=== PATIENT | female | born 2000 | race Caucasian/White ===

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

== ENCOUNTER → 2019-05-02 | Outpatient (CLI) | payer OTHER ==
--- NOTE | 2019-05-03 03:58 | MR ---
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 Diffusion weighted imaging was performe d. FINDINGS: Ventricles have normal size. There is no mass effect nor midline shift. There is no sign of intracranial hemorrhage. There is no evidence of cerebral edema. There is no sign of a cortical infa rct. Corpus callosum appears normal. Sella turcica is fairly normal. Optic chiasm appears normal. The re is a single 3 mm focus of increased signal in the white matter right frontal lobe of doubtful sign ificance. Brainstem is intact. IMPRESSION: Negative MR scan of the brain. No change compared to old exam.
== END | disposition home or self-care (01) ==
LOC: RADMRIMAIN 19:24
PROVIDERS: ATTEND Psychiatry & Neurology Neurology
DX: D33.2 Benign neoplasm of brain, unspecified (principal)
CPT/HCPCS: 70551

== ENCOUNTER → 2020-08-30 | Outpatient (CLI) | payer OTHER ==
--- NOTE | 2020-08-31 02:17 | MR ---
EXAMINATION TYPE: MR brain wo/w con DATE OF EXAM: 08/30/2020 COMPARISON: 05/02/2019 HISTORY: New onset memory issues, dizziness, trouble forming words and sentences. CONTRAST: Standard multiplanar, multisequence MRI departmental protocol utilizing 5.5 mL intravenous Gadavist g adolinium contrast. Multiplanar multiecho imaging of the brain was performed without and with IV contrast gadolinium 5.5 mL. FINDINGS: Ventricles and sulci appear normal. There is no mass effect nor midline shift. There is no sign of in tracranial hemorrhage. Diffusion images show no evidence of an infarct. Meadows-white matter structures have normal signal pattern. There is no evidence of cerebral edema. Corpus callosum appears normal. Sella turcica is normal. Brainstem is intact. There is no evidence of posterior fossa mass. Orbits appear normal. Contrast images show no pathologic enhancement. There is normal enhancement of the venous sinuses. IMPRESSION: Normal MR scan of the brain. No adverse change.
== END | disposition home or self-care (01) ==
LOC: RADMRIMAIN 18:15
PROVIDERS: ATTEND Physician Assistant
DX: R42 Dizziness and giddiness (principal); R47.01 Aphasia
CPT/HCPCS: 70553; A9585

== ENCOUNTER 2024-11-16 17:36 | Emergency (ER) | payer OTHER ==
[2024-11-16 17:42] VITALS: TEMP 98
--- NOTE | 2024-11-16 17:58 | ED ---
General Adult HPI - General Chief complaint: Nausea/Vomiting/Diarrhea Stated complaint: 13 weeks /NVD/Upper Abd pain Time Seen by Provider: 11/16/24 17:42 Source: patient, RN notes reviewed Mode of arrival: ambulatory Limitations: no limitations - History of Present Illness Initial comments: This is a 24-year-old female, [id number], presenting to the emergency department with complaints of nausea, vomiting, epigastric abdominal pain. Patient states that last menstrual cycle was the beginning of August and has taken multiple positive at home test and believes that she is between 5 to 13 weeks . She states that she has been experiencing epigastric abdominal pain over the past few days however this is worsened today not being able to keep down foods or liquids. Patient denies vaginal bleeding, dysuria, hematuria, creased urinary frequency or urgency, fevers, cough, rhinorrhea or congestion. Endorses diarrhea that is nonbloody. Denies previous surgical abdominal history. - Related Data Previous Rx's Medication Instructions Recorded Ondansetron Odt [Zofran Odt] 4 mg PO Q8HR PRN #10 tab 11/16/24 Allergies Allergy/AdvReac Type Severity Reaction Status Date / Time No Known Allergies Allergy Verified 11/16/24 17:42 Review of Systems ROS Statement: Those systems with pertinent positive or pertinent negative responses have been documented in the HPI. ROS Other: All systems not noted in ROS Statement are negative. Past Medical History Additional Past Medical History / Comment(s): brain tumor History of Any Multi-Drug Resistant Organisms: None Reported Past Surgical History: No Surgical Hx Reported Past Psychological History: No Psychological Hx Reported General Exam Limitations: no limitations General appearance: alert, in no apparent distress ENT exam: Present: normal exam, mucous membranes moist Neck exam: Present: normal inspection. Absent: tenderness, meningismus, lymphadenopathy Respiratory exam: Present: normal lung sounds bilaterally. Absent: respiratory distress, wheezes, rales, rhonchi, stridor Cardiovascular Exam: Present: regular rate, normal rhythm, normal heart sounds. Absent: systolic murmur, diastolic murmur, rubs, gallop, clicks GI/Abdominal exam: Present: soft, tenderness (epigastric, lower abdomen), normal bowel sounds. Absent: distended, guarding, rebound, rigid Extremities exam: Present: normal inspection, full ROM, normal capillary refill. Absent: tenderness, pedal edema, joint swelling, calf tenderness Back exam: Present: normal inspection. Absent: CVA tenderness (R), CVA tenderness (L) Skin exam: Present: warm, dry, intact, normal color. Absent: rash Course Vital Signs 11/16/24 11/16/24 17:39 20:00 Temperature 98 F Pulse Rate 76 80 Respiratory 20 18 Rate Blood Pressure 135/82 112/69 O2 Sat by Pulse 98 100 Oximetry Medical Decision Making - Medical Decision Making Was pt. sent in by a medical professional or institution (, PA, INFLATABLE BUILDINGS LAMINATOR, urgent care, hospital, or penitentiary...) When possible be specific @ -No Did you speak to anyone other than the patient for history (EMS, parent, family, police, friend...)? What history was obtained from this source @ -No Did you review nursing and triage notes (agree or disagree)? Why? @ -I reviewed and agree with nursing and triage notes Were old charts reviewed (outside hosp., previous admission, EMS record, old EKG, old radiological studies, urgent care reports/EKG's, penitentiary records)? Report findings @ -No old charts were reviewed Differential Diagnosis (chest pain, altered mental status, abdominal pain women, abdominal pain men, vaginal bleeding, weakness, fever, dyspnea, syncope, headache, dizziness, GI bleed, back pain, seizure, CVA, palpatations, mental health, musculoskeletal)? @ -Differential Abdominal Pain Women: Appendicitis, Cholecystitis, diverticulosis, ischemic bowel, pancreatitis, hepatitis, UTI, gastroenteritis, AAA, incarcerated hernia, bowel obstruction, constipation, inflammatory bowel, hepatitis, peptic ulcer disease, splenic infarction, perforated viscus, vulvitis, ovarian torsion, PID, kidney stone, placenta abruption, this is not meant to be an all-inclusive list EKG interpreted by me (3pts min.). @ -None X-rays interpreted by me (1pt min.). @ -None done CT interpreted by me (1pt min.). @ -None done U/S interpreted by me (1pt. min.). @ - ultrasound completed reveals a single live intrauterine gestation with estimated gestational age of 6 weeks 1 day with a heart rate of 115, no evidence of subchorionic bleeding. What testing was considered but not performed or refused? (CT, X-rays, U/S, labs)? Why? @ -None What meds were considered but not given or refused? Why? @ -None Did you discuss the management of the patient with other professionals (professionals i.e. , PA, INFLATABLE BUILDINGS LAMINATOR, lab, RT, psych nurse, psychologist social, store management trainee, teacher, enforcement officer, case making machine operator)? Give summary @ -No Was smoking cessation discussed for >3mins.? @ -No Was critical care preformed (if so, how long)? @ -No Were there social determinants of health that impacted care today? How? (Homeles sness, low income, unemployed, alcoholism, drug addiction, transportation, low edu. Level, literacy, decrease access to med. care, skilled nursing, rehab)? @ -No Was there de-escalation of care discussed even if they declined (Discuss DNR or withdrawal of care, Hospice)? DNR status @ -No What co-morbidities impacted this encounter? (DM, HTN, Smoking, COPD, CAD, Cancer, CVA, ARF, Chemo, Hep., AIDS, mental health diagnosis, sleep apnea, morbid obesity)? @ -None Was patient admitted / discharged? Hospital course, mention meds given and route, prescriptions, significant lab abnormalities, going to OR and other pertinent info. @ -Discharge. 24-year-old sent emergency room with nausea, vomiting, abdominal pain during . Patient's pain is reproducible on examination of epigastric region. Patient is provided with IV fluids and Reglan for nausea. Patient has an elevated white cell count of 12.9, shift neutrophils of 10 likely secondary to emesis. CMP [place] [address] Patient's urine is 2+ ketones likely secondary to dehydration. No signs of infection. Ultrasound reveals a intrauterine gestation with an age of 6 weeks 1 days and heart rate of 115. Patient is feeling well after fluids and antiemetics and is stable for discharge. Return parameters discussed. Case discussed with Dr. Herrmann Undiagnosed new problem with uncertain prognosis? @ -No Drug Therapy requiring intensive monitoring for toxicity (Heparin, Nitro, Insulin, Cardizem)? @ -No Were any procedures done? @ -No Diagnosis/symptom? @ -nausea and vomiting during , hyperemesis gravadarum Acute, or Chronic, or Acute on Chronic? @ -acute Uncomplicated (without systemic symptoms) or Complicated (systemic symptoms)? @ -uncomplicated Side effects of treatment? @ -No Exacerbation, Progression, or Severe Exacerbation? @ -No Poses a threat to life or bodily function? How? (Chest pain, USA, SC, pneumonia, PE, COPD, DKA, ARF, appy, cholecystitis, CVA, Diverticulitis, Homicidal, Suicidal, threat to staff... and all critical care pts) @ -No - Lab Data Result diagrams: 11/16/24 18:27 11/16/24 18:27 Lab Results 11/16/24 11/16/24 11/16/24 Range/Units 18:27 18:27 18:27 WBC 12.95 H (4.50-10.00) 10*3/uL RBC 4.22 (4.10-5.20) 10*6/uL Hgb 12.3 (12.0-15.0) g/dL Hct 34.7 L (37.2-46.3) % MCV 82.2 (80.0-97.0) fL MCH 29.1 (27.0-32.0) pg MCHC 35.4 (32.0-37.0) g/dL Plt Count 332 (140-440) 10*3/uL MPV 10.5 (9.5-12.2) fL Immature Gran % (Auto) 0.5 % Neutrophils % 77.8 % Lymphocytes % 14.1 % Monocytes % 6.8 % Eosinophils % 0.3 % Basophils % 0.5 % Immature Gran # 0.06 H (0.00-0.04) 10*3/uL Neutrophils # 10.08 H (1.80-7.70) 10*3/uL Lymphocytes # 1.83 (0.90-5.00) 10*3/uL Monocytes # 0.88 (0.20-1.00) 10*3/uL Eosinophils # 0.04 (0.04-0.35) 10*3/uL Basophils # 0.06 (0.00-0.10) 10*3/uL Sodium 135 L (137-145) mmol/L Potassium 3.6 (3.5-5.1) mmol/L Chloride 101 (98-107) mmol/L Carbon Dioxide 21 L (22-30) mmol/L Anion Gap 13 mmol/L BUN 6 L (7-17) mg/dL Creatinine 0.58 (0.52-1.04) mg/dL Est GFR (CKD-EPI)AfAm >90 (>60 ml/min/1.73 sqM) Est GFR (CKD-EPI)NonAf >90 (>60 ml/min/1.73 sqM) Glucose 99 (74-99) mg/dL Calcium 9.9 (8.4-10.2) mg/dL Total Bilirubin 1.0 (0.2-1.3) mg/dL AST 27 (14-36) U/L ALT 20 (4-34) U/L Alkaline Phosphatase 27 L (38-126) U/L Total Protein 7.7 (6.3-8.2) g/dL Albumin 4.8 (3.5-5.0) g/dL Lipase 64 (23-300) U/L HCG, Quant 86840.8 mIU/mL Urine Color Yellow Urine Appearance Clear (Clear) Urine pH 5.5 (5.0-8.0) Ur Specific [place] 1.021 (1.001-1.035) Urine Protein Negative (Negative) Urine Glucose (UA) Negative (Negative) Urine Ketones 2+ H (Negative) Urine Blood Negative (Negative) Urine Nitrite Negative (Negative) Urine Bilirubin Negative (Negative) Urine Urobilinogen <2.0 (<2.0) mg/dL Ur Leukocyte Esterase Negative (Negative) Disposition Clinical Impression: Nausea and vomiting during Disposition: HOME SELF-CARE Condition: Stable Instructions (If sedation given, give patient instructions): Nausea and Vomiting in (ED) Additional Instructions: Please return to the Emergency Department if symptoms worsen or any other concerns. Prescriptions: Ondansetron Odt [Zofran Odt] 4 mg PO Q8HR PRN #10 tab PRN Reason: Nausea Is patient prescribed a controlled substance at d/c from ED?: No Referrals: Janel Angeles DO [Primary Care Provider] - 1-2 days Time of Disposition: 20:15
[2024-11-16] MEDS: METOCLOPRAMIDE 5 MG/ML 2 ML VIAL IVP STA (18:29)
[2024-11-16] MEDS: SODIUM CHLORIDE 0.9% 2,000 ML IV STA (18:31)
[2024-11-16 18:42] LABS: Basophils # (A) 0.06 10*3/uL (0.00-0.10); Basophils % (A) 0.5 %; Eosinophils # (A) 0.04 10*3/uL (0.04-0.35); Eosinophils % (A) 0.3 %; HCT 34.7 % (37.2-46.3); HGB 12.3 g/dL (12.0-15.0); Lymphocytes # (A) 1.83 10*3/uL (0.90-5.00); Lymphocytes % (A) 14.1 %; MCH 29.1 pg (27.0-32.0); MCHC 35.4 g/dL (32.0-37.0); MCV 82.2 fL (80.0-97.0); Mean Platelet Volume 10.5 fL (9.5-12.2); Monocytes # (A) 0.88 10*3/uL (0.20-1.00); Monocytes % (A) 6.8 %; Neutrophils # (A) 10.08 10*3/uL (1.80-7.70); Neutrophils % (A) 77.8 %; Platelet Count 332 10*3/uL (140-440); RBC 4.22 10*6/uL (4.10-5.20); WBC 12.95 10*3/uL (4.50-10.00)
[2024-11-16 18:46] LABS: Appearance,Urine Clear (Clear); Bilirubin,Urine Negative (Negative); Blood,Urine Negative (Negative); Color,Urine Yellow; Glucose,Urine (UA) Negative (Negative); Ketones,Urine 2+ (Negative); Leukocyte Esterase,Urine Negative (Negative); Nitrite,Urine Negative (Negative); PH, Urine 5.5 (5.0-8.0); Protein,Urine Negative (Negative); Specific Gravity,Urine 1.021 (1.001-1.035); Urobilinogen,Urine <2.0 mg/dL (<2.0)
[2024-11-16 18:54] LABS: ALT 20 U/L (4-34); AST 27 U/L (14-36); African American GFR (CKD) >90 (>60 ml/min/1.73 sqM); Albumin 4.8 g/dL (3.5-5.0); Alkaline Phosphatase 27 U/L (38-126); Anion Gap 13 mmol/L; Blood Urea Nitrogen 6 mg/dL (7-17); Calcium 9.9 mg/dL (8.4-10.2); Carbon Dioxide 21 mmol/L (22-30); Chloride 101 mmol/L (98-107); Glucose 99 mg/dL (74-99); Lipase 64 U/L (23-300); Non-African American GFR(CKD) >90 (>60 ml/min/1.73 sqM); Potassium 3.6 mmol/L (3.5-5.1); Sodium 135 mmol/L (137-145); Total Protein 7.7 g/dL (6.3-8.2)
[2024-11-16 19:46] LABS: HCG,Quantitative Serum 31874.8 mIU/mL
--- NOTE | 2024-11-16 19:53 | US ---
EXAMINATION TYPE: Transabdominal DATE OF EXAM: 11/16/2024 7:09 PM COMPARISON: NONE CLINICAL INDICATION: Female, 24 years old with history of ab pain, cramping, + test, LMP 08/09/24; TECHNIQUE: Transabdominal (TA) with grayscale and color Doppler imaging including first trimester pre gnancy. FINDINGS: EXAM MEASUREMENTS: GESTATIONAL AGE / DATING Physician Established: Dates by LMP: (14 weeks/1 days) EDC: 05/16/2025 Dates by First Scan: No previous this is first scan Dates by Current Scan for: (6 weeks/1 days) EDC: 07/11/2025 MATERNAL ANATOMY Uterus: 8.9 x 6.3 x 4.5 cm Right Ovary: 2.5 x 1.6 x 1.6 cm Left Ovary: 2.5 x 1.2 x 1.2 cm Post CDS / Adnexa: no free fluid Presence of free fluid: no Presence of corpus luteal cyst: no Presence of subchorionic bleed: no GESTATION / SURVEY CRL: 0.4 cm (6 weeks/1 days) Gestational Sac morphology: unremarkable Gestational Sac MSD: seen, not measured Yolk Sac (normal less than 6mm): 2.4 mm Cardiac Activity/Heart Rate: 115 bpm Rhythm: Normal IUP: Viable IUP Date of LMP: 08/09/24, Beta HcG (if available): Not available at this time IMPRESSION: 1. Single intrauterine gestation estimated at 6 weeks 1 day gestation based on crown-rump length. Car diac activity measures 115 bpm. [facility], , 11/16/2024 7:51 PM
[2024-11-16 20:06] VITALS: BP 112/69; PULSE 80; RESP 18
[2024-11-16] MEDS: ONDANSETRON 4 MG ODT STARTER PACK 2 TAB BTL PO STA (20:27)
[2024-11-16] MEDS: ONDANSETRON 4 MG/2 ML VIAL IVP STA (20:48)
== END 2024-11-16 20:41 | disposition home or self-care (01) ==
LOC: EC 17:36
DX: O21.9 Vomiting of pregnancy, unspecified (principal); Z3A.13 13 weeks gestation of pregnancy
CPT/HCPCS: 36415; 80053; 83690; 85025; 81003; 84702; 76801; 99284; 96374; 96361 ×2; J2765; S0119

== ENCOUNTER 2024-11-30 13:28 | Observation (INO) | payer BC, OTHER ==
--- NOTE | 2024-11-30 13:59 | ED ---
General Adult HPI - General Chief complaint: Nausea/Vomiting/Diarrhea Stated complaint: Nausea Time Seen by Provider: 11/30/24 13:42 Source: patient Mode of arrival: wheelchair - History of Present Illness Initial comments: Has a previous healthy 24-year-old female presenting today for nausea and vomiting in . States she is 9 weeks . Was here 2 weeks ago for similar and was discharged home with Zofran. She is has been taking Zofran regularly and ran out 3 days ago and started having symptoms again yesterday evening. She endorses persistent nausea and vomiting this morning up to 30 episodes. Emesis is nonbloody nonbilious. She has no abdominal pain shortness of breath or chest pain. She has not had any fevers or chills, dysuria, urinary frequency or hematuria, no vaginal bleeding or discharge, no abdominal pain. She is requesting "just her nausea medications and I can go". She went to local urgent care but they were unsure if she could have Zofran in so sent her here. She denies lightheadedness or dizziness, she has her first priscila ointment with an OB in [place] in a couple of weeks. - Related Data Previous Rx's Medication Instructions Recorded Famotidine [Pepcid] 20 mg PO BID tab 12/01/24 Ondansetron Odt [Zofran ODT] 4 mg PO Q8HR PRN #30 tab 12/01/24 Pyridoxine HCl (Vitamin B6) 25 mg PO Q8H PRN #30 tablet 12/01/24 [Pyridoxine HCl] Allergies Allergy/AdvReac Type Severity Reaction Status Date / Time No Known Allergies Allergy Verified 11/30/24 16:44 Review of Systems ROS Statement: Those systems with pertinent positive or pertinent negative responses have been documented in the HPI. ROS Other: All systems not noted in ROS Statement are negative. Past Medical History Additional Past Medical History / Comment(s): brain tumor History of Any Multi-Drug Resistant Organisms: None Reported Past Surgical History: No Surgical Hx Reported Past Psychological History: No Psychological Hx Reported Smoking Status: Former smoker Past Alcohol Use History: None Reported Past Drug Use History: Marijuana - Past Family History Sister(s) Family Medical History: Diabetes Mellitus General Exam - General Exam Comments Initial Comments: PE: CONSTITUTIONAL: No apparent distress, somewhat ill-appearing, nontoxic, SKIN: Warm, dry, no jaundice, hives or petechiae, generalized pallor EYES: Pupils are equally round, extraocular movements intact without nystagmus, clear conjunctiva, non-icteric sclera HENT: Normocephalic, atraumatic, moist mucus membranes, oropharynx clear without exudates NECK: , Full range of motion, normal appearance PULMONARY: Clear to auscultation without wheezes, rhonchi, or rales, normal excursion, no accessory muscle use and no stridor CARDIOVASCULAR: Regular rate, rhythm, normal S1 and S2. No appreciated murmurs, rubs or gallops. Strong radial pulses with intact distal perfusion. No lower extremity edema GASTROINTESTINAL: Soft, active bowel sounds throughout, non-tender, non- distended, no palpable masses, no rebound or guarding. No hepatosplenomegaly, no CVA tenderness GENITOURINARY: MUSCULOSKELETAL: Extremities have no gross deformity, no edema, redness, or swelling. NEUROLOGIC:_a/o x 3, GCS 15, normal mentation and speech. Moves all extremities x 4 without motor or sensory deficit PSYCHIATRIC:_normal mood and affect, thought process is clear and linear Course Vital Signs 11/30/24 11/30/24 11/30/24 13:45 15:27 18:36 Temperature 97.5 F L 98.1 F 98.9 F Pulse Rate 86 81 76 Respiratory 18 17 19 Rate Blood Pressure 104/53 97/54 99/62 O2 Sat by Pulse 100 99 100 Oximetry Medical Decision Making - Medical Decision Making Was pt. sent in by a medical professional or institution (, PA, MANAGER BILINGUAL, urgent care, hospital, or penitentiary...) When possible be specific @ -No Did you speak to anyone other than the patient for history (EMS, parent, family, police, friend...)? What history was obtained from this source @ -No Did you review nursing and triage notes (agree or disagree)? Why? @ -I reviewed and agree with nursing and triage notes Were old charts reviewed (outside hosp., previous admission, EMS record, old EKG, old radiological studies, urgent care reports/EKG's, penitentiary records)? Report findings @ -Medical records reviewed patient was here on 11/16/2024, reviewed notes and la bs from that date, patient had been seen for nausea, vomiting and epigastric abdominal pain last menstrual cycle beginning of August, patient was provided IV fluids and Reglan, labs are significant for white blood cell count of 12.9, hCG quant was 31,874, urine had 2+ ketones, ultrasound showed intrauterine gestation with age of 6 weeks 1 day and heart rate of 115 patient felt well after fluids antiemetics with stable for discharge Differential Diagnosis (chest pain, altered mental status, abdominal pain women, abdominal pain men, vaginal bleeding, weakness, fever, dyspnea, syncope, headache, dizziness, GI bleed, back pain, seizure, CVA, palpatations, mental health, musculoskeletal)? @ -[Differential diagnosis remains broad over top considerations include hyperemesis gravidarum, nausea vomiting in , gastroenteritis, cholecystitis, pancreatitis this is not an all inclusive ist EKG interpreted by me (3pts min.). @ -As above X-rays interpreted by me (1pt min.). @ -None done CT interpreted by me (1pt min.). @ -None done U/S interpreted by me (1pt. min.). @ -None done What testing was considered but not performed or refused? (CT, X-rays, U/S, labs)? Why? @ -None What meds were considered but not given or refused? Why? @ -None Did you discuss the management of the patient with other professionals (professionals i.e. , PA, MANAGER BILINGUAL, lab, RT, psych nurse, dialysis social worker, business process coordinator, teacher, information security officer, case packer and sealer)? Give summary @Yes case discussed with Dr. Arce, nepology, please see recs below Was smoking cessation discussed for >3mins.? @ -No Was critical care preformed (if so, how long)? @ -yes 35 minutes Were there social determinants of health that impacted care today? How? (Homelessness, low income, unemployed, alcoholism, drug addiction, transportation, low edu. Level, literacy, decrease access to med. care, halfway, rehab)? @ -No Was there de-escalation of care discussed even if they declined (Discuss DNR or withdrawal of care, Hospice)? @ -No What co-morbidities impacted this encounter? (DM, HTN, Smoking, COPD, CAD, Cancer, CVA, ARF, Chemo, Hep., AIDS, mental health diagnosis, sleep apnea, morbid obesity)? @ -None Was patient admitted / discharged? Hospital course, mention meds given and route, prescriptions, significant lab abnormalities, going to OR and other pertinent info. @ -Admission - this is a pleasant pleasant 24-year female presenting today for nausea and vomiting in . Vital signs are stable on arrival. Patient was initially seen and assessed in the waiting room, obtained patient's permission to perform her assessment and discuss her care in the waiting room to which she was agreeable. Exam significant for soft nontender abdomen. She is not tachycardic, patient states she is here for nausea medications and then wou ld like to go home. I did discuss with her obtaining basic labs to ensure no severe electrolyte abnormalities to which she is agreeable. Ordered GI cocktail: Reglan, Zofran, Benadryl, B6 and Pepcid as well as IV fluids. Labs are significant for hypernatremia, sodium 164.Previously on 11/16/24 as 135. Suspect secondary to volume depletion. Kidney function is within normal limits. I updated patient, she suspects this also may be secondary to increased intake of salty potato chips. I discussed patient's care with Dr. Arce nephrology, recommends D5 water infusion at 100 cc an hour. Redraw sodium at 8 PM tonight. Orders placed. Case was discussed with JORGE Roman who kindly accepted patient for admission. Undiagnosed new problem with uncertain prognosis? @ -No Drug Therapy requiring intensive monitoring for toxicity (Heparin, Nitro, Insulin, Cardizem)? @ -No Were any procedures done? @ -No Diagnosis/symptom? Hypernatremia, nausea and vomiting in Acute, or Chronic, or Acute on Chronic? @ -Acute Uncomplicated (without systemic symptoms) or Complicated (systemic symptoms)? Complicated Side effects of treatment? @ -No Exacerbation, Progression, or Severe Exacerbation? @ -No Poses a threat to life or bodily function? How? (Chest pain, USA, MA, pneumonia, PE, COPD, DKA, ARF, appy, cholecystitis, CVA, Diverticulitis, Homicidal, Suicidal, threat to staff... and all critical care pts) Yes - Lab Data Result diagrams: 11/30/24 13:42 12/01/24 06:11 Lab Results 11/30/24 11/30/24 11/30/24 Range/Units 13:42 13:42 15:27 WBC 15.86 H (4.50-10.00) 10*3/uL RBC 4.35 (4.10-5.20) 10*6/uL Hgb 12.5 (12.0-15.0) g/dL Hct 36.4 L (37.2-46.3) % MCV 83.7 (80.0-97.0) fL MCH 28.7 (27.0-32.0) pg MCHC 34.3 (32.0-37.0) g/dL Plt Count 321 (140-440) 10*3/uL MPV 10.1 (9.5-12.2) fL Immature Gran % (Auto) 0.5 % Neutrophils % 95.0 % Lymphocytes % 2.8 % Monocytes % 1.4 % Eosinophils % 0.0 % Basophils % 0.3 % Immature Gran # 0.08 H (0.00-0.04) 10*3/uL Neutrophils # 15.08 H (1.80-7.70) 10*3/uL Lymphocytes # 0.44 L (0.90-5.00) 10*3/uL Monocytes # 0.22 (0.20-1.00) 10*3/uL Eosinophils # 0.00 L (0.04-0.35) 10*3/uL Basophils # 0.04 (0.00-0.10) 10*3/uL Sodium 164 H* (137-145) mmol/L Potassium 4.0 (3.5-5.1) mmol/L Chloride 104 (98-107) mmol/L Carbon Dioxide 20 L (22-30) mmol/L Anion Gap 40 mmol/L BUN 9 (7-17) mg/dL Creatinine 0.44 L (0.52-1.04) mg/dL Est GFR (CKD-EPI)AfAm >90 (>60 ml/min/1.73 sqM) Est GFR (CKD-EPI)NonAf >90 (>60 ml/min/1.73 sqM) Glucose 109 H (74-99) mg/dL Calcium 9.9 (8.4-10.2) mg/dL Total Bilirubin 0.7 (0.2-1.3) mg/dL AST 32 (14-36) U/L ALT 25 (4-34) U/L Alkaline Phosphatase <20 L (38-126) U/L Total Protein 7.4 (6.3-8.2) g/dL Albumin 4.6 (3.5-5.0) g/dL Lipase 50 (23-300) U/L HCG, Quant 385950.0 mIU/mL Urine Color Yellow Urine Appearance Cloudy H (Clear) Urine pH 7.0 (5.0-8.0) Ur Specific [place] 1.033 (1.001-1.035) Urine Protein 1+ H (Negative) Urine Glucose (UA) Negative (Negative) Urine Ketones 4+ H (Negative) Urine Blood Negative (Negative) Urine Nitrite Negative (Negative) Urine Bilirubin Negative (Negative) Urine Urobilinogen <2.0 (<2.0) mg/dL Ur Leukocyte Esterase Negative (Negative) Urine RBC 5 (0-5) /hpf Urine WBC 2 (0-5) /hpf Ur Squamous Epith Cells 6 H (0-4) /hpf Urine Bacteria Rare H (None) /hpf Hyaline Casts 1 (0-2) /lpf Urine Mucus Many H (None) /hpf Disposition Clinical Impression: Nausea and vomiting during , Acute hypernatremia Disposition: ADMITTED IP TO THIS [facility] Condition: Stable
[2024-11-30] MEDS: SODIUM CHLORIDE 0.9% 2,000 ML IV STA (14:57)
[2024-11-30] MEDS: ONDANSETRON ODT 4 MG TAB PO STA (14:58)
[2024-11-30] MEDS: FAMOTIDINE 20 MG/2 ML VIAL IV STA (14:59)
[2024-11-30] MEDS: diphenhydrAMINE 50 MG/ML 1 ML VIAL IVP STA (14:59)
[2024-11-30] MEDS: METOCLOPRAMIDE 5 MG/ML 2 ML VIAL IVP STA (14:59)
[2024-11-30 15:20] LABS: Basophils # (A) 0.04 10*3/uL (0.00-0.10); Basophils % (A) 0.3 %; HCT 36.4 % (37.2-46.3); HGB 12.5 g/dL (12.0-15.0); Lymphocytes # (A) 0.44 10*3/uL (0.90-5.00); Lymphocytes % (A) 2.8 %; MCH 28.7 pg (27.0-32.0); MCHC 34.3 g/dL (32.0-37.0); MCV 83.7 fL (80.0-97.0); Mean Platelet Volume 10.1 fL (9.5-12.2); Monocytes # (A) 0.22 10*3/uL (0.20-1.00); Monocytes % (A) 1.4 %; Neutrophils # (A) 15.08 10*3/uL (1.80-7.70); Platelet Count 321 10*3/uL (140-440); RBC 4.35 10*6/uL (4.10-5.20); RDW 13.4 % (11.5-14.5); WBC 15.86 10*3/uL (4.50-10.00)
[2024-11-30] MEDS: PYRIDOXINE 100 MG/ML 1 ML VIAL IVP STA (15:26)
[2024-11-30 15:35] LABS: ALT 25 U/L (4-34); AST 32 U/L (14-36); African American GFR (CKD) >90 (>60 ml/min/1.73 sqM); Albumin 4.6 g/dL (3.5-5.0); Alkaline Phosphatase <20 U/L (38-126); Anion Gap 40 mmol/L; Blood Urea Nitrogen 9 mg/dL (7-17); Calcium 9.9 mg/dL (8.4-10.2); Carbon Dioxide 20 mmol/L (22-30); Chloride 104 mmol/L (98-107); Glucose 109 mg/dL (74-99); Lipase 50 U/L (23-300); Non-African American GFR(CKD) >90 (>60 ml/min/1.73 sqM); Total Bilirubin 0.7 mg/dL (0.2-1.3); Total Protein 7.4 g/dL (6.3-8.2)
[2024-11-30 15:37] LABS: Appearance,Urine Cloudy (Clear); Bacteria,Urine Rare /hpf; Bilirubin,Urine Negative (Negative); Blood,Urine Negative (Negative); Color,Urine Yellow; Glucose,Urine (UA) Negative (Negative); Hyaline Casts,Urine 1 /lpf (0-2); Ketones,Urine 4+ (Negative); Leukocyte Esterase,Urine Negative (Negative); Mucus,Urine Many /hpf; Nitrite,Urine Negative (Negative); Protein,Urine 1+ (Negative); RBC,Urine 5 /hpf (0-5); Specific Gravity,Urine 1.033 (1.001-1.035); Squamous Epithelial Cell,Urine 6 /hpf (0-4); Urobilinogen,Urine <2.0 mg/dL (<2.0); WBC,Urine 2 /hpf (0-5)
[2024-11-30 15:39] LABS: Sodium 164 mmol/L (137-145)
[2024-11-30] MEDS: DEXTROSE 5% IN WATER 1,000 ML IV ONE (16:52)
[2024-11-30] MEDS ORDERED: ACETAMINOPHEN TAB 325 MG TAB PO PRN (17:54)
[2024-11-30] MEDS ORDERED: PROCHLORPERAZINE 5 MG TAB PO PRN (17:54)
[2024-11-30] MEDS: LACTATED RINGERS 1,000 ML IV SCH (23:41)
[2024-12-01] MEDS: FAMOTIDINE 20 MG TAB PO SCH (00:42)
[2024-12-01 07:12] LABS: African American GFR (CKD) >90 (>60 ml/min/1.73 sqM); Anion Gap 9 mmol/L; Blood Urea Nitrogen 5 mg/dL (7-17); Calcium 9.5 mg/dL (8.4-10.2); Carbon Dioxide 21 mmol/L (22-30); Chloride 104 mmol/L (98-107); Glucose 92 mg/dL (74-99); Magnesium 1.9 mg/dL (1.6-2.3); Non-African American GFR(CKD) >90 (>60 ml/min/1.73 sqM); Potassium 3.5 mmol/L (3.5-5.1); Sodium 134 mmol/L (137-145)
--- NOTE | 2024-12-01 09:07 | US ---
EXAMINATION TYPE: Transabdominal DATE OF EXAM: 12/01/2024 7:29 AM COMPARISON: 11/16/2024 CLINICAL INDICATION: Female, 24 years old with history of viability, dates; Hypernatremia. No bleedi ng. TECHNIQUE: Transabdominal (TA) with grayscale and color Doppler imaging including first trimester pre gnancy. FINDINGS: EXAM MEASUREMENTS: GESTATIONAL AGE / DATING Physician Established: (8 weeks/5 days) EDC: 07/08/2025 Dates by First Scan: (8 weeks/6 days) EDC: 07/07/2025 Dates by Current Scan for: (8 weeks/6 days) EDC: 07/07/2025 MATERNAL ANATOMY Uterus: 11.8 x 7.1 x 6.5 cm Right Ovary: 3.0 x 2.2 x 2.3 cm Left Ovary: 2.8 x 2.1 x 1.2 cm Post CDS / Adnexa: no free fluid Presence of free fluid: no free fluid Presence of corpus luteal cyst: right ovary - Presence of subchorionic bleed: no GESTATION / SURVEY CRL: 2.2 cm (8 weeks/6 days) Gestational Sac morphology: Normal Gestational Sac MSD: seen, not measured Yolk Sac (normal less than 6mm): 3.5 mm Cardiac Activity/Heart Rate: 174 bpm Rhythm: Normal IUP: Viable IUP Date of LMP: 08/09/2024, Beta HcG (if available): Not available at this time IMPRESSION: 1. Single intrauterine gestation estimated at 8 weeks 6 days. Cardiac activity measures 174 bpm [facility], , 12/01/2024 9:05 AM
[2024-12-01] MEDS: ONDANSETRON 4 MG/2 ML VIAL IVP PRN (09:26)
[2024-12-01 09:29] VITALS: BP 102/66; PULSE 68; RESP 16; TEMP 98.2
--- NOTE | 2024-12-01 13:44 | P.HPIM ---
History of Present Illness H&P Date: 12/01/24 Patient is a 24-year-old female 9 weeks AOG here for nausea and vomiting. Patient reported to 2 weeks ago she was discharged on Zofran but ran out of prescriptions 3 days ago and he started to have symptoms again on 11/29 evening. She sought care in urgent care but they were not sure if she could have Zofran in so she sent them to our ED for care. She also reported persistent nausea. Vomiting episodes are nonbilious nonbloody and nonprojectile. She denied chest pain, shortness of breath, abdominal pain, fevers, chills, dysuria, urinary frequency, hematuria, vaginal bleeding or discharge, lightheadedness, dizziness. On admission: Vitals: Temp 97.5 F, [place] 86, RR 18, BP 104/53, O2 saturation 100% on room air Labs: WBC 15.8, hemoglobin 12.5, sodium 164, potassium 4, bicarb 20, BUN 9, creatinine 0.44, glucose 109, calcium 9.9. Liver enzymes WNL. Urinalysis showed +1 protein, plus 1 for ketones, negative leukocyte esterase, negative nitrites. Imaging: ultrasound showed single intrauterine gestation estimated at 8 weeks and 6 days. ED documentation reviewed. Review of systems: Pertinent positives and negatives as discussed in HPI, a complete review of systems was performed and all other systems are negative. Physical examination: Vital signs reviewed General: non toxic, no distress, appears at stated age, on room air Derm: no unusual rashes/lesions, warm Head: atraumatic, normocephalic, symmetric Eyes: EOMI, anicteric sclera, pupils equal round reactive to light ENT: Nose and ears atraumatic Neck: No cervical lymphadenopathy, trachea midline, supple Mouth: no lip lesion, mucus membranes moist Cardiovascular: S1S2 reg, no murmur Lungs: CTA bilateral, no rhonchi, no rales, no accessory muscle use Abdominal: soft, nondistended, nontender to palpation, no guarding Ext: muscle strength 5 out of 5 in all 4 extremities grossly, no gross muscle atrophy, no contractures, positive dorsalis pedis pulse bilateral, no edema Neuro: CN II-XI grossly intact, no gross focal neuro deficits Psych: Alert and oriented x 3, appropriate affect and mood Assessment/Plan: The patient is admitted with an anticipated less than 2 midnight stay for evaluation of hyperemesis gravidarum Active: # Hyperemesis gravidarum, improved # Hypernatremia, improved Given 1 L 0.9 normal saline bolus in the ED. Initiated on D5 water 100 mL/h. Transition to lactated Ringer's at 50 cc/h. Sodium 164 on admission. Now 134. Discontinue fluids Continue with Zofran, Reglan and Compazine for nausea and vomiting #Leukocytosis, likely reactive WBC 15.8 Patient afebrile at this time Monitor for now DVT ppx: SCDs CODE STATUS: Full Discussed with: Patient Anticipated discharge place: Home Lilli Fortune MD PGY-1 Internal Medicine Dictation was produced using [employer] dictation software. please excuse any grammatical, word or spelling errors. Attestation: I have seen and examined this patient with my resident, assessment and plan discussed with the resident, agree with assessment and plan as written above. Dr. Chairez Past Medical History Additional Past Medical History / Comment(s): brain tumor History of Any Multi-Drug Resistant Organisms: None Reported Past Surgical History: No Surgical Hx Reported Additional Past Surgical History / Comment(s): tumor resection of brain. nasal surgery Past Anesthesia/Blood Transfusion Reactions: No Reported Reaction Past Psychological History: Anxiety, Depression Smoking Status: Former smoker Past Alcohol Use History: None Reported Past Drug Use History: Marijuana Additional Drug Use History / Comment(s): quit vaping and marijuana 2 weeks ago per pt - Past Family History Sister(s) Family Medical History: Diabetes Mellitus Medications and Allergies Home Medications Medication Instructions Recorded Confirmed Type Ondansetron Odt [Zofran Odt] 4 mg PO Q8HR PRN #10 tab 11/16/24 11/30/24 Rx Allergies Allergy/AdvReac Type Severity Reaction Status Date / Time No Known Allergies Allergy Verified 11/30/24 16:44 Physical Exam Vitals: Vital Signs Temp Pulse Pulse Resp BP BP Pulse Ox 12/01/24 00:16 98.0 F 62 14 98/41 99 11/30/24 20:30 98.3 F 84 17 129/82 98 11/30/24 18:36 98.9 F 76 19 99/62 100 11/30/24 15:27 98.1 F 81 17 97/54 99 11/30/24 13:45 97.5 F L 86 18 104/53 100 Intake and Output 11/30/24 12/01/24 12/01/24 22:59 06:59 14:59 Intake Total 600 Balance 600 Intake: IV 600 Other: # Voids 1 0 Weight 51.256 kg Results CBC & Chem 7: 11/30/24 13:42 12/01/24 06:11 Labs: Abnormal Lab Results - Last 24 Hours (Table) 11/30/24 11/30/24 11/30/24 Range/Units 13:42 13:42 15:27 WBC 15.86 H (4.50-10.00) 10*3/uL Hct 36.4 L (37.2-46.3) % Immature Gran # 0.08 H (0.00-0.04) 10*3/uL Neutrophils # 15.08 H (1.80-7.70) 10*3/uL Lymphocytes # 0.44 L (0.90-5.00) 10*3/uL Eosinophils # 0.00 L (0.04-0.35) 10*3/uL Sodium 164 H* (137-145) mmol/L Carbon Dioxide 20 L (22-30) mmol/L BUN (7-17) mg/dL Creatinine 0.44 L (0.52-1.04) mg/dL Glucose 109 H (74-99) mg/dL Alkaline Phosphatase <20 L (38-126) U/L Urine Appearance Cloudy H (Clear) Urine Protein 1+ H (Negative) Urine Ketones 4+ H (Negative) Ur Squamous Epith Cells 6 H (0-4) /hpf Urine Bacteria Rare H (None) /hpf Urine Mucus Many H (None) /hpf 11/30/24 12/01/24 12/01/24 Range/Units 22:27 00:17 06:11 WBC (4.50-10.00) 10*3/uL Hct (37.2-46.3) % Immature Gran # (0.00-0.04) 10*3/uL Neutrophils # (1.80-7.70) 10*3/uL Lymphocytes # (0.90-5.00) 10*3/uL Eosinophils # (0.04-0.35) 10*3/uL Sodium 134 L 133 L 134 L (137-145) mmol/L Carbon Dioxide 21 L (22-30) mmol/L BUN 5 L (7-17) mg/dL Creatinine (0.52-1.04) mg/dL Glucose (74-99) mg/dL Alkaline Phosphatase (38-126) U/L Urine Appearance (Clear) Urine Protein (Negative) Urine Ketones (Negative) Ur Squamous Epith Cells (0-4) /hpf Urine Bacteria (None) /hpf Urine Mucus (None) /hpf Thrombosis Risk Factor Assmnt - Choose All That Apply Any of the Below Risk Factors Present?: Yes Each Factor Represents 1 point: or Other Risk Factors: No Other congenital or acquired thrombophilia - If yes, enter type in comment: No Thrombosis Risk Factor Assessment Total Risk Factor Score: 1 Thrombosis Risk Factor Assessment Level: Low Risk
--- NOTE | 2024-12-01 15:53 | P.DS ---
Providers Date of admission: 11/30/24 17:54 Attending physician: Sonia Espino Consults: 11/30/24 17:54 Consult Physician Urgent Consulting Provider: Theo Arce Consult Reason/Comments: hypernatremia Do you want consulting provider notified?: Already Contacted Primary care physician: Jan[facility] Course: Hospital Course: Patient is a 24-year-old female 9 weeks AOG here for nausea and vomiting. Patient reported to 2 weeks ago she was discharged on Zofran but ran out of prescriptions 3 days ago and he started to have symptoms again on 11/29 evening. She sought care in urgent care but they were not sure if she could have Zofran in so she sent them to our ED for care. She also reported persistent nausea. Vomiting episodes are nonbilious nonbloody and nonprojectile. She denied chest pain, shortness of breath, abdominal pain, fevers, chills, dysuria, urinary frequency, hematuria, vaginal bleeding or discharge, lightheadedness, dizziness. On admission: Vitals: Temp 97.5 F, [place] 86, RR 18, BP 104/53, O2 saturation 100% on room air Labs: WBC 15.8, hemoglobin 12.5, sodium 164, potassium 4, bicarb 20, BUN 9, creatinine 0.44, glucose 109, calcium 9.9. Liver enzymes WNL. Urinalysis showed +1 protein, plus 1 for ketones, negative leukocyte esterase, negative nitrites. Imaging: ultrasound showed single intrauterine gestation estimated at 8 weeks and 6 days. Patient was admitted for the evaluation of hyperemesis gravidarum and hypernatremia. IV fluids, pyridoxine, Zofran, Reglan and Compazine were ordered. Nephrology was consulted. Sodium improved throughout hospital stay and IV fluids were discontinued. Patient's symptoms improved throughout her hospital stay. No new complications occurred throughout her stay. She is sent home today with oral Zofran and pyridoxine and famotidine. She is advised to follow-up with her PCP and PLANT BIOLOGY PROFESSOR on outpatient basis. Final Diagnosis: # Hyperemesis gravidarum, improved # Hypernatremia, improved #Leukocytosis, likely reactive Physical examination: Vital signs reviewed General: non toxic, no distress, appears at stated age, on room air Derm: no unusual rashes/lesions, warm Head: atraumatic, normocephalic, symmetric Eyes: EOMI, anicteric sclera, pupils equal round reactive to light ENT: Nose and ears atraumatic Neck: No cervical lymphadenopathy, trachea midline, supple Mouth: no lip lesion, mucus membranes moist Cardiovascular: S1S2 reg, no murmur Lungs: CTA bilateral, no rhonchi, no rales, no accessory muscle use Abdominal: soft, nondistended, nontender to palpation, no guarding Ext: muscle strength 5 out of 5 in all 4 extremities grossly, no gross muscle atrophy, no contractures, positive dorsalis pedis pulse bilateral, no edema Neuro: CN II-XI grossly intact, no gross focal neuro deficits Psych: Alert and oriented x 3, appropriate affect and mood Attestation: I have seen and examined this patient with my resident, assessment and plan discussed with the resident, agree with assessment and plan as written above. Dr. Chairez Patient Condition at Discharge: Stable Plan - Discharge Summary New Discharge Prescriptions: New Famotidine [Pepcid] 20 mg PO BID tab Pyridoxine HCl (Vitamin B6) [Pyridoxine HCl] 25 mg PO Q8H PRN #30 tablet PRN Reason: Nausea And Vomiting Continue Ondansetron Odt [Zofran ODT] 4 mg PO Q8HR PRN #30 tab PRN Reason: Nausea Discharge Medication List Famotidine [Pepcid] 20 mg PO BID tab 12/01/24 [Rx] Ondansetron Odt [Zofran ODT] 4 mg PO Q8HR PRN #30 tab 12/01/24 [Rx] Pyridoxine HCl (Vitamin B6) [Pyridoxine HCl] 25 mg PO Q8H PRN #30 tablet 12/01/24 [Rx] Follow up Appointment(s)/Referral(s): Janel Angeles DO [Primary Care Provider] - 1-2 days Patient Instructions/Handouts: Hyperemesis Gravidarum (DC) Activity/Diet/Wound Care/Special Instructions: Please follow up with PCP and OB-REAL ESTATE ANALYST Discharge Disposition: HOME SELF-CARE
--- NOTE | 2024-12-01 19:02 | P.NPCON ---
History of Present Illness - Reason for Consult hypernatremia - History of Present Illness Patient is a 24-year-old female who is 9 weeks and was admitted to the hospital with complaints of significant diarrhea and nausea and vomiting. No prior history of hyponatremia or hypernatremia. Patient was started on D5W and serum sodium decreased significantly from 164-134 in about 9 hours. Since then patient has been maintained on Ringer lactate. This morning patient denies any nausea vomiting or diarrhea. She is able to tolerate oral intake. No new medications that was started No changes in mentation Past Medical History Additional Past Medical History / Comment(s): brain tumor History of Any Multi-Drug Resistant Organisms: None Reported Past Surgical History: No Surgical Hx Reported Additional Past Surgical History / Comment(s): tumor resection of brain. nasal surgery Past Anesthesia/Blood Transfusion Reactions: No Reported Reaction Past Psychological History: Anxiety, Depression Smoking Status: Former smoker Past Alcohol Use History: None Reported Past Drug Use History: Marijuana Additional Drug Use History / Comment(s): quit vaping and marijuana 2 weeks ago per pt - Past Family History Sister(s) Family Medical History: Diabetes Mellitus Medications and Allergies Home Medications Medication Instructions Recorded Confirmed Type Famotidine [Pepcid] 20 mg PO BID tab 12/01/24 Rx Ondansetron Odt [Zofran ODT] 4 mg PO Q8HR PRN #30 tab 12/01/24 Rx Pyridoxine HCl (Vitamin B6) 25 mg PO Q8H PRN #30 tablet 12/01/24 Rx [Pyridoxine HCl] Allergies Allergy/AdvReac Type Severity Reaction Status Date / Time No Known Allergies Allergy Verified 11/30/24 16:44 Physical Exam Vitals: Vital Signs Temp Pulse Resp BP Pulse Ox 12/01/24 08:00 98.2 F 68 16 102/66 98 12/01/24 00:16 98.0 F 62 14 98/41 99 11/30/24 20:30 98.3 F 84 17 129/82 98 Intake and Output 12/01/24 12/01/24 12/01/24 06:59 14:59 22:59 Intake Total 600 Balance 600 Intake: IV 600 Other: # Voids 0 1 Patient is awake, comfortable, no acute distress Examination of the heart S1 and S2 Examination of the lungs bilateral breath sounds are heard Abdomen is soft nontender Examination of lower extremities shows no evidence of edema 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 Hypernatremia associated with free water deficit from significant vomiting. Status post D5W. Calculated Free water deficit about 2 L. Serum sodium staying at about 134 now. Currently maintained on Ringer lactate. 2. Nausea vomiting secondary to hyperemesis gravidarum 3. Starvation ketosis with evidence of ketones in the urine associated with hyperemesis gravidarum. Currently tolerating oral intake. Plan: Patient can be discharged from nephrology standpoint. Advised to maintain adequate oral intake Repeat labs in 1 to 2 days post discharge. Thank you for the consultation.
== END 2024-12-01 16:00 | disposition home or self-care (01) ==
LOC: EC 13:28 → 4FBP 17:54
PROVIDERS: ADMIT Hospitalist; ATTEND Hospitalist
DX: O21.1 Hyperemesis gravidarum with metabolic disturbance (principal); D72.829 Elevated white blood cell count, unspecified; Z79.899 Other long term (current) drug therapy; Z87.891 Personal history of nicotine dependence; Z3A.09 9 weeks gestation of pregnancy
CPT/HCPCS: 96361 ×2; 96375 ×2; 96374; 99285; 99291; 36415; 80053; 80048; 83690; 83735; 84295 ×2; 85025; 81001; 84702; 76801; G0378 ×2; J1200; J3415; J2765; J2405; J1308